=== PATIENT | female | born 1985 | race Caucasian/White ===

== ENCOUNTER 2023-12-29 19:17 | Emergency (ER) | payer BC ==
[~2023-12-29] VITALS: Ht 172.7 cm; Wt 73.0 kg
[2023-12-29 19:25] VITALS: TEMP 97.8; O2SAT 99
[2023-12-29] MEDS: ONDANSETRON HCL 4MG/2ML INJ IV ONE (19:45)
[2023-12-29 20:04] LABS: CLARITY URINE CLEAR (CLEAR); COLOR URINE DARK YELLOW (YELLOW); GLUCOSE URINE NEGATIVE (NEGATIVE); KETONES URINE 1+ (NEGATIVE); LEUKOCYTE ESTERASE URINE NEGATIVE (NEGATIVE); NITRITE URINE NEGATIVE (NEGATIVE); OCCULT BLOOD URINE NEGATIVE (NEGATIVE); PH URINE 5.5 (4.5-8.0); PROTEIN URINE TRACE (NEGATIVE); SPECIFIC GRAVITY URINE 1.026 (1.005-1.030); UROBILINOGEN URINE 0.2 E.U./dL (0.2-1.0)
[2023-12-29 20:23] LABS: BACTERIA URINE 2+; RBC URINE 0-2 /hpf (0-2); SQUAMOUS EPITHELIAL CELL URINE 1+ /lpf (RARE/1+)
[2023-12-29 20:24] LABS: MUCUS URINE 1+ /lpf (< = 2+); WBC URINE 0-2 /hpf (0-2)
[2023-12-29 20:37] LABS: DIFFERENTIAL COMMENT 1; HEMATOCRIT. 36.1 % (36.0-48.0); HEMOGLOBIN. 11.7 g/dL (12.0-16.0); MEAN CORPUSCULAR HEMOGLOBIN 27.1 pg (28.0-32.0); MEAN CORPUSCULAR HGB CONC 32.6 g/dL (31.0-37.0); MEAN CORPUSCULAR VOLUME 83.3 fL (81.0-99.0); MEAN PLATELET VOLUME 8.3 fl (7.4-10.4); PLATELET 263 x1000/uL (130-400); RED BLOOD CELL COUNT 4.33 mill/uL (4.2-5.4); RED CELL DISTRIBUTION WIDTH 15.8 % (11.6-14.6)
[2023-12-29 20:42] LABS: CHLORIDE 107 mEq/L (98-107); POTASSIUM 3.7 mEq/L (3.5-5.1); SODIUM 137 mEq/L (136-145)
[2023-12-29 20:43] LABS: CARBON DIOXIDE 21 mEq/L (21-32)
[2023-12-29 20:44] LABS: CALCIUM 8.7 mg/dL (8.7-10.4)
[2023-12-29 20:46] LABS: HCG SCREEN NEGATIVE
[2023-12-29 20:47] LABS: PROTHROMBIN TIME 10.7 sec (9.6-11.0)
[2023-12-29 20:48] LABS: CREATININE 0.9 mg/dL (0.6-1.0); GLUCOSE 143 mg/dL (70-105); UREA NITROGEN BLOOD 11 mg/dL (9-23)
[2023-12-29 20:58] LABS: PLATELET ESTIMATE NORMAL
[2023-12-29] MEDS ORDERED: AZIT250T12 MT (21:13)
[2023-12-29] MEDS ORDERED: ONDA4TAB50 MT (21:13)
[2023-12-29 21:30] VITALS: BP 129/78; PULSE 67; RESP 16; O2SAT 100
[2023-12-29] MEDS: KETOROLAC 15MG/ML VIAL IM ONE (21:30)
== END 2023-12-29 21:58 | disposition home or self-care (01) ==
LOC: ER 19:17
DX: K92.0 Hematemesis (principal); I10 Essential (primary) hypertension
CPT/HCPCS: 99283; 80048; 81003; 84703; 83690; 85025; 85610; 36415; 96372; J1885